=== PATIENT | male | born 1955 | race Caucasian/White ===

== ENCOUNTER 2020-04-21 13:58 | Inpatient (IN) | payer BC ==
[~2020-04-21] VITALS: Ht 200.7 cm; Wt 94.5 kg
[2020-05-28] VITALS (12 sets, daily range): BP systolic 137–155; BP diastolic 75–88; PULSE 54–89; TEMP 97.1–98.2
--- NOTE | 2020-05-28 05:17 | NUR ---
ARRIVES TO FLOOR VIA AMBULATORY STATUS. IS NPO. IS ALERT AND ORIENTED X4. DENIES PAIN AT THIS TIME.
[2020-05-28] MEDS ORDERED: ADVIL200 MG PO (05:26)
[2020-05-28] MEDS ORDERED: FISH OIL 500 M1 EAC1 PO (05:27)
--- NOTE | 2020-05-28 06:00 | NUR ---
PT ADMISSION QUESTIONS COMPLETE, HAS TAKEN PREOP MEDS. IV SITE TO LEFT HAND #20 INSERTED WITHOUT PROBLEM. LR AT KVO. RIGHT KNEE SCRUBBED.
--- NOTE | 2020-05-28 10:29 | NUR ---
PT TO ROOM 330 AFTER SURGERY BY BED WITH REPORT FROM ARMAND @1000. PT EI A/O X3 LUNGS CLEAR, BOWEL SOUNDS POSITIVE. PEDAL PULSES PALPABLE. DRESSING TO RIGHT KNEE CDI WITH OCCLUSIVE SHIVANI WRAP OVER INCISION. IV TO PUMP. SCDS PLACED BILATERALLY. ICE WATER PROVIDED. PT DENIES FURTHER NEEDS.
--- NOTE | 2020-05-28 11:24 | NUR ---
PT REPORTING NAUSEA AND DRY HEAVING. IV ZOFRAN GIVEN ORDERED.
--- NOTE | 2020-05-28 15:16 | NUR ---
Product Inspection Coordinator met with patient to discuss discharge planning. Patient lives in [place] with his , Cheri (ph#[phone]) and sees Dr. Cross for primary care. Patient obtains medications from [facility] in [place] with no difficulties. Patient has a walker that he rented from [email or web address] and no other DME. Patient reports independence with ADLS and plans to return home at discharge. Patient does not have Advance Directives and was not interested in setting them up at this time. SW will continue to follow as needed.
--- NOTE | 2020-05-28 16:59 | NUR ---
PT UP TO BR VOIDED AND THEN RETURNED TO BED. BEGAN WORKING WITH THERAPY THIS PM. AMBULATED IN WOODS 50 + ft with a steady gait. Pt doing well.
--- NOTE | 2020-05-28 19:01 | NUR ---
REPORT TO ISABEL KIRK.
--- NOTE | 2020-05-28 20:09 | NUR ---
Shift report received from REAGAN Le. At time of assessment, patient is in bed; He is alert and oriented, heart sounds normal/regular, lungs clear, no edema present. Pain score is 6/10 and 1 Kari is administered. Patient states he had BM this morning and is voiding. IS education is provided and patients demonstrates understanding. No new concerns.
--- NOTE | 2020-05-28 23:45 | NUR ---
Patient assisted to ambulate at this time. He walked from room to IPR and back with walker. No concerns about ambulation.
[2020-05-29 02:07] VITALS: BP 138/79; PULSE 89; TEMP 98
[2020-05-29 04:37] VITALS: BP 141/82; PULSE 92; TEMP 98.7
[2020-05-29 06:35] LABS: HEMATOCRIT 37.3 % (42.0-52.0); HEMOGLOBIN 12.9 g/dl (13.5-18.0)
[2020-05-29 07:27] VITALS: BP 172/81; PULSE 84; TEMP 97.6
--- NOTE | 2020-05-29 08:21 | NUR ---
Lying in bed with eyes closed. Eyes open when name called out.Rates pain to right knee 7/10, describes as tightening. Dressing to right knee CDI. Will change to Aquacel dressing at this time. IV fluids dc'd. Patient denies additional needs.
[2020-05-29 08:30] VITALS: BP 168/83; PULSE 83
--- NOTE | 2020-05-29 08:31 | NUR ---
[place] administered as prescribed for right knee pain.
--- NOTE | 2020-05-29 11:26 | NUR ---
Lying in bed with eyes open. Says that he is doing okay. Denies any additional needs at this time.
[2020-05-29 12:09] VITALS: BP 161/83; PULSE 86; TEMP 99.1
--- NOTE | 2020-05-29 13:03 | NUR ---
Rating pain in right knee 5/10, would like pain medication as he knows he will be working with PT. Administered [place] as prescribed. Patient denies additional needs at this time.
--- NOTE | 2020-05-29 14:21 | NUR ---
Sitting up in chair with eyes open. Rates pain 5/10 and says that it is tolerable. Patient asks if he will be discharged. Explain that I will call Dr. Lopez to check and we will let him know. Message left for Dr. Lopez to contact this nurse.
--- NOTE | 2020-05-29 14:47 | NUR ---
Receive call back from Dr. Lopez and he will come in to see the patient when he is done with clinic to discuss discharge.
[2020-05-29 15:54] VITALS: BP 142/83; PULSE 87; TEMP 98.3
--- NOTE | 2020-05-29 16:02 | NUR ---
Sitting up in bed. Rates pain in right knee 5/10, describes as achy, and would like a pain pill as soon as he finds out he will discharge. Denies any further additional needs at this time.
[2020-05-29] MEDS ORDERED: ASPI325T6 PO (16:56)
[2020-05-29] MEDS ORDERED: ROXICODONE 55 MG/TAB PO (16:57)
[2020-05-29] MEDS ORDERED: ULTRAM 50MG TAB50 MG PO (16:57)
[2020-05-29] MEDS ORDERED: SENOKOT S 50 MG1 TAB PO (16:57)
--- NOTE | 2020-05-29 17:25 | NUR ---
[place] administered as prescribed. Reviewed discharge instructions with the patient. Questions answered. Patient verbalizes understanding and signs discharge paperwork. Discharge packet provided to the patient.
--- NOTE | 2020-05-29 17:39 | NUR ---
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 Patient assisted out to vehicle via wheelchair by DIOGENES Bragg, with all belongings.
== END 2020-05-29 17:41 | disposition home or self-care (01) | DRG 470 ==
LOC: JCC 05-28 05:07
PROVIDERS: ADMIT Orthopaedic Surgery
PROC: 0SRC0J9 Replacement of Right Knee Joint with Synthetic Substitute, Cemented, Open Approach (ICD-10-PCS; principal; 2020-05-28 07:30)
DX: M17.11 Unilateral primary osteoarthritis, right knee (principal); Z85.828 Personal history of other malignant neoplasm of skin; Z87.891 Personal history of nicotine dependence
CPT/HCPCS: A9284; C1776; J0690; J2250; J2405; J2704; J3010; J7030; J7120

== ENCOUNTER 2020-07-17 06:21 | Day surgery (SDC) | payer BC ==
[~2020-07-17] VITALS: Ht 177.8 cm; Wt 93.7 kg
[~2020-07-17 06:21] MED LIST: ADVIL200 MG PO; ASPI325T6 PO; FISH OIL 500 M1 EAC1 PO; ROXICODONE 55 MG/TAB PO; SENOKOT S 50 MG1 TAB PO; ULTRAM 50MG TAB50 MG PO
[2020-07-17 06:54] VITALS: BP 140/82; PULSE 73; TEMP 98.8
[2020-07-17] MEDS ORDERED: ADVIL200 MG PO (07:08)
--- NOTE | 2020-07-17 07:11 | NUR ---
TO RM AT 0632- CALL LIGHT AT REACH AT BEDSIDE.
[2020-07-17] MEDS ORDERED: NORCO 325 MG-51 TAB PO (08:29)
[2020-07-17 08:40] VITALS: BP 144/78; PULSE 68; TEMP 98.6
--- NOTE | 2020-07-17 08:40 | NUR ---
TO RM 7 PER CART FROM PACU FOLLOWING A RIGHT KNEE MANIPULATION. ICE OVER RIGHT KNEE. PATIENT DROWSY BUT ANSWERS QUESTIONS COHERENTLY. AT BEDSIDE. RECEIVED WATER. C/O KNEE BEING "SORE"
[2020-07-17 08:55] VITALS: BP 146/78; PULSE 66
--- NOTE | 2020-07-17 08:55 | NUR ---
MORE AWAKE AND ASKING QUESTIONS. RECEIVED NNEKA.PUDDING. SITTING UP AND TALKING TO STAFF AND .
[2020-07-17 09:10] VITALS: BP 132/85; PULSE 70
--- NOTE | 2020-07-17 09:10 | NUR ---
C/O INCREASED PAIN 06/23- RECEIVED NORCO 7.5MG 1 TAB.
[2020-07-17 09:25] VITALS: BP 148/78; PULSE 71
--- NOTE | 2020-07-17 09:25 | NUR ---
AMBULATED TO BATHROOM USING WALKER. PATIENT STATED HIS RIGHT KNEE FELT BETTER. VOIDED AND AMBULATED BACK TO .
[2020-07-17 09:28] VITALS: BP 144/78; PULSE 68
--- NOTE | 2020-07-17 09:50 | NUR ---
DISCHARGED PER WC BY NURSING STAFF TO PRIVATE CAR IN CARE OF VINITA.
--- NOTE | 2020-07-17 09:55 | NUR ---
RECEIVED DISCHARGE INSTRUCTIONS AND VERBALIZED UNDERSTANDING WITH AT BEDSIDE. DISCONTINUED IV AND INT- CATHETER INTACT.
== END 2020-07-17 09:56 | disposition home or self-care (01) ==
LOC: SDCO
DX: M24.661 Ankylosis, right knee (principal); Z96.651 Presence of right artificial knee joint; Z98.52 Vasectomy status; Z87.891 Personal history of nicotine dependence; Z20.828 Contact with and (suspected) exposure to other viral communicable diseases
CPT/HCPCS: J2704; J3010; J7120